=== PATIENT | female | born 1970 | race Caucasian/White ===

== ENCOUNTER → 2017-12-21 | Outpatient (CLI) | payer OTHER ==
[~2017-12-21] MED LIST: CHOL20007 PO; GADAVIST IV PRN; HYDR25TA4 PO; MISCCAP80; MULT-506 PO; NORETAB3; OMEG10007 PO
--- NOTE | 2017-12-21 12:08 | DIAGNOSTIC IMAGING REPORT ---
BRAIN COMBO FOR MS HISTORY: Demyelinating disorder G35 TECHNIQUE: Multiplanar multisequence MRI of the brain was performed both before and after the intravenous administration of contrast. COMPARISON STUDY: 12/15/2016 FINDINGS: Diffusion-weighted images continue to show no significant acute ischemic process. Coronal FLAIR images given differences in technique suggests several plaques in the region of the left and to a lesser extent right optic radiations. These are also seen in the subcortical and deep white matter regions of both cerebral hemispheres and in general appear similar. Paraventricular frontal lobe foci of increased signal persist. It is not appear to be a significant increase in number or size of the plaques. There is no significant postcontrast enhancement. IMPRESSION: 1. Stable findings of a demyelinating disorder or multiple sclerosis. 2. Scattered plaques as described are generally stable. 3. No abnormal postcontrast enhancement. 4. No abnormal signal characteristics on diffusion imaging. The above report was generated using voice recognition software. It may contain grammatical, syntax or spelling errors. Electronically signed by: Elfego Samayoa M.D. 12/21/2017 12:07 PM Dictated Date/Time: 12/21/2017 11:55 AM
== END | disposition home or self-care (01) ==
LOC: C.MRIBC 11:03
PROVIDERS: ATTEND Psychiatry & Neurology Neurology
DX: G35 Multiple sclerosis (principal)